=== PATIENT | male | born 1990 | race Caucasian/White ===

== ENCOUNTER 2022-12-14 04:47 | Emergency (ER) | payer SELFPAY ==
[~2022-12-14] VITALS: Ht 172.7 cm; Wt 79.8 kg
[2022-12-14 04:50] VITALS: BP 120/79; PULSE 69; RESP 18; TEMP 98; O2SAT 98
[2022-12-14] MEDS ORDERED: IBUPROFEN 600 MG TAB PO ONE (05:00)
[2022-12-14 05:05] VITALS: O2SAT 98
== END 2022-12-14 04:57 ==
LOC: MED 04:47
DX: M25.511 Pain in right shoulder (principal); Z79.899 Other long term (current) drug therapy
CPT/HCPCS: 99283